=== PATIENT | female | born 1975 | race Caucasian/White ===

== ENCOUNTER 2016-06-19 12:21 | Emergency (ER) | payer OTHER ==
[2016-06-19 12:36] VITALS: BP 124/72; PULSE 83; TEMP 98.3; BMI 33.2
--- NOTE | 2016-06-19 14:05 | PDOC ---
History of Present Illness - General Chief Complaint: Shortness of Breath Stated Complaint: SOB,DIZZY Time Seen by Provider: 06/19/16 12:48 - History of Present Illness Initial Comments: 06/19/16 15:08 Chief complaint: Shortness of breath History of present illness: Patient has been short of breath, especially with exertion, for the past few days. There's been no wheezing but there is intermittent chest tightness. She is been trying to wean herself from her Symbicort inhaler. She has had a recent URI with mild sore throat. Her children have had strep recently Past medical history: Long history of asthma maintained on albuterol and Symbicort. She does not like taking medication and has been trying to do without her inhalers. She has not used Symbicort for several weeks. No history of heart disease, diabetes, travel, hormone therapy. Social/family history reviewed and noncontributory Physical exam: Alert and oriented 3, well-developed well-nourished, no acute distress, cheerful and cooperative Afebrile, vital signs normal including oxygen saturation of 100% HEENT: Mild pharyngeal injection without exudate. Ears clear. Nose clear without discharge Neck supple without bruit mass or nodes Lungs with decreased rest sounds globally, however, no wheezes rales or rhonchi. CV S1 and S2 normal without murmur rub or gallop pulses full and symmetric no JVD or edema Abdomen benign Neurological intact Extremities no CCE Skin clear, no rash, adequate turgor and what mucous membranes Impression: Exacerbation of asthma, probably worsened by withdrawal of inhaled steroids Plan: Nebulizer treatments, resume current medications, pulmonology consultation as an outpatient. Past History - Past Medical History Allergies/Adverse Reactions: Allergies Allergy/AdvReac Type Severity Reaction Status Date / Time No Known Allergies Allergy Verified 06/19/16 12:22 Home Medications: Ambulatory Orders Albuterol Sulfate Inhaler - [Ventolin Hfa Inhaler -] 1 puff IH PRN PRN 06/19/16 Budesonide/Formeterol Fumarate [SYMBICORT 160/4.5mcg -] 1 inh PO BID 06/19/16 Asthma: Yes - Psycho/Social/Smoking Cessation Hx Anxiety: No Suicidal Ideation: No Smoking History: Never smoked Have you smoked in the past 12 months: No Information on smoking cessation initiated: No Hx Alcohol Use: No Drug/Substance Use Hx: No Substance Use Type: None *Physical Exam - Vital Signs Last Vital Signs Temp Pulse Resp BP Pulse Ox 98.3 F 83 22 124/72 100 06/19/16 12:21 06/19/16 12:21 06/19/16 12:21 06/19/16 12:21 06/19/16 12:21 Medical Decision Making - Medical Decision Making 06/19/16 15:12 After 1 DuoNeb treatment, the patient feels much better. She states that she is breathing much better. Considerable improvement in breath sounds with substantially more air movement audible. Rapid strep is negative EKG entirely normal. Discharged fully ambulatory, feeling much improved, to resume medications as directed and follow-up with primary physician and pulmonary physician for further recommendation. *DC/Admit/Observation/Transfer Diagnosis at time of Disposition: Asthma Qualifiers: Asthma severity: mild intermittent Asthma complication type: with acute exacerbation Qualified Code(s): J45.21 - Mild intermittent asthma with (acute) exacerbation - Discharge Dispostion Disposition: HOME Condition at time of disposition: Improved Admit: No - Referrals Referrals: Ludwig Baxter MD [Staff Physician] - Leroy Pierce MD [Staff Physician] - - Patient Instructions Printed Discharge Instructions: DI for Asthma -- Adult Additional Instructions: Use your inhalers exactly as directed on a daily basis. See pulmonary physician as directed. Also follow-up with your primary physician
[2016-06-19] MEDS ORDERED: ALBUTEROL SO4 2.5/IPRATROPIUM 0.5 INH SOL 3 ML VIAL.NEB. NEB ONE (14:23)
[2016-06-19] MEDS: ALBUTEROL SO4 2.5/IPRATROPIUM 0.5 INH SOL 3 ML VIAL.NEB. NEB ONE (14:35)
--- NOTE | 2016-06-20 10:49 | EKG ---
Test Reason : Blood Pressure : / mmHG Vent. Rate : 075 BPM Atrial Rate : 075 BPM P-R Int : 120 ms QRS Dur : 080 ms QT Int : 394 ms P-R-T Axes : 062 062 036 degrees QTc Int : 439 ms NORMAL SINUS RHYTHM NORMAL ECG NO PREVIOUS ECGS AVAILABLE Confirmed by MALU CERON MD ([id number]) on 06/20/2016 10:49:14 AM Referred By: KRISTIE JACKSON Confirmed By:MALU CERON MD
== END 2016-06-19 15:06 | disposition home or self-care (01) ==
LOC: FER 12:21
PROC: 3E0F7GC Introduction of Other Therapeutic Substance into Respiratory Tract, Via Natural or Artificial Opening (ICD-10-PCS; principal; 2016-06-19)
DX: J45.20 Mild intermittent asthma, uncomplicated (principal)
CPT/HCPCS: 87070; 87430; 93005; 99283-25